=== PATIENT | male | born 1975 | race Caucasian/White ===

== ENCOUNTER 2018-04-29 12:31 | Emergency (ER) | payer BC ==
--- NOTE | 2018-04-29 13:10 | ER Document Report ---
HPI - HPI Pain Level: 1 Notes: Patient is a 42-year-old male who presents to the emergency department with chief complaint of bee sting. Patient reports that at approximately 1130 this morning he was stung on his back by a bee. He reports he was stung twice. He states that he has an allergy to bee stings, he has an EpiPen on hand however he states it was so he did not use it. He states he called EMS, EMS came picked him up at approximately 12:00, placed an IV and gave 50 mg of Benadryl and 20 mg of famotidine IV. They did not give epinephrine as his symptoms were not severe at the time. Past Medical History - General Information source: Patient - Social History Smoking Status: Current Some Day Smoker Frequency of alcohol use: None Drug Abuse: None Family History: Hypertension - Past Medical History Cardiac Medical History: Reports: Hx Hypertension Past Surgical History: Reports: Hx Tonsillectomy - and adnoids - Immunizations Hx Diphtheria, Pertussis, Tetanus Vaccination: Yes Vertical Provider Document - CONSTITUTIONAL Notes: PHYSICAL EXAMINATION: GENERAL: Well-appearing, well-nourished and in no acute distress. HEAD: Atraumatic, normocephalic. EYES: Pupils equal round extraocular movements intact, conjunctiva are normal. ENT: Nares patent NECK: Normal range of motion LUNGS: No respiratory distress, lung sounds clear to auscultation and equal bilaterally. Musculoskeletal: Normal range of motion NEUROLOGICAL: Normal speech, normal gait. PSYCH: Normal mood, normal affect. SKIN: Warm, Dry, normal turgor, no rashes or lesions noted. - INFECTION CONTROL TRAVEL OUTSIDE OF THE [place] IN LAST 30 DAYS: No Course - Re-evaluation Re-evalutation: 04/29/18 13:09 Patient reports resolution of all of his symptoms at the time of my initial evaluation at 1305. He does not have any hives. His lung sounds are clear. Will monitor patient for a short amount of time and then discharge home with a prescription for epinephrine. - Vital Signs Vital signs: Temp Pulse Resp BP Pulse Ox 98.2 F 83 16 127/79 H 94 04/29/18 12:37 04/29/18 12:37 04/29/18 12:37 04/29/18 12:37 04/29/18 12:37 Discharge - Discharge Clinical Impression: Allergic reaction Qualifiers: Encounter type: initial encounter Qualified Code(s): T78.40XA - Allergy, unspecified, initial encounter Condition: Stable Disposition: HOME, SELF-CARE Additional Instructions: Acute Allergic Reaction Your symptoms are due to an allergic reaction. Allergy can cause hives, swelling of the hands, feet, and face, hoarseness, and difficulty swallowing or breathing. It may be due to exposure to medication, animal dander, foods, infection, or insect bites. Medication is a common cause, even when prior use of this same medication caused no problems. Acute treatment may include adrenalin and antihistamines. Usually, the specific allergic agent can't be identified unless repeated episodes occur. Home treatment includes the following: (1) Stop any suspicious medications. This will be discussed with you. (2) Oral antihistamines for the next four to five days. Example, diphenhydramine (Benadryl) every four hours. (3) You may also use cimetidine (Tagamet), ranitidine (Zantac), or famotidine (Pepcid) every four hours if diphenhydramine is not controlling itching and hives. (4) Avoid aspirin until the hives completely disappear. (5) Avoid hot bahs or showers until the hives are completely gone. Call the doctor if faintness, difficulty swallowing, tightness in the chest, or wheezing occurs. Please keep the EpiPen with you at all times. You may take Benadryl 50 mg every 6 hours for itching or hives. Take the Pepcid and prednisone as prescribed. Follow-up with your primary care provider if not improving. Return to the emergency department immediately if you experience faintness, difficulty swallowing, difficulty breathing or tightness in the chest. Prescriptions: Epinephrine [Epipen 2-Bret] 0.3 mg IM ONCE PRN #1 packet PRN Reason: Famotidine [Pepcid 40 mg Tablet] 40 mg PO BID #14 tablet Prednisone [Deltasone 20 mg Tablet] 3 tab PO DAILY 5 Days #15 tablet
[2018-04-29 14:05] VITALS: BP 120/79
== END 2018-04-29 14:02 | disposition home or self-care (01) ==
LOC: ER 12:31
DX: T78.40XA Allergy, unspecified, initial encounter (principal); T63.441A Toxic effect of venom of bees, accidental (unintentional), initial encounter; F17.200 Nicotine dependence, unspecified, uncomplicated; I10 Essential (primary) hypertension
CPT/HCPCS: 99283